=== PATIENT | female | born 2000 | race Caucasian/White ===

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

== ENCOUNTER 2024-02-14 07:44 | Emergency (ER) | payer BC ==
--- OUTSIDE RECORDS SUMMARY | 2024-02-14 07:46 | XMS REPORT | Continuity of Care Document ---
Author Name Unknown Address [address] [facility] [address] [place], [place] [id number] [place] [address] [employer] Address [address] 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 ON 9 [id number] 2022 00:00:00 Social History Social Habit Start Date Stop Date Quantity Comments Source Gender identity Kaylee Arora - External Sexual orientation Elijah Arora - External Alcohol intake 2023-06-11 00:00:00 2023-06-11 00:00:00 Current drinker of alcohol (finding) Kerry Arora - External History of Social function 2023-03-24 00:00:00 2023-03-24 00:00:00 Kerry Arora - External Tobacco use and exposure 2023-01-13 00:00:00 2023-01-13 00:00:00 Smokeless tobacco non-user Kerry Arora - External Alcohol Comment 2023-01-13 00:00:00 2023-01-13 00:00:00 socially Kerry Arora - External Sex Assigned At 2000 00:00:00 2000 00:00:00 F Kerry Hernandez Smoking Status Start Date Stop Date Source Never smoked tobacco Kerry Hernandez Medications Ordered Medication Name Filled Medication Name Start Date Stop Date Current Medication? Ordering Clinician Indication Dosage Frequency Signature (SIG) Comments Components Source TRIAMCINOLO NE ACETONIDE EX 08-01 08:25: 15 Yes Apply topically. Kerry orper Cetirizine HCl (ZYRTEC ALLERGY OR) 08-01 08:20: 34 Yes Take by mouth Kerry roper Clobetasol Propionate 0.05 % apply externally Ointment 08-01 00:00: 00 Yes [id number] Apply to affected areas twice daily for up to two weeks. Then use as needed to affected areas.. Kerry roper Cetirizine HCl (ZYRTEC ALLERGY OR) 2022-07 09:58: 49 Yes Take by mouth Kerry roper Triamcinolo ne Acetonide 0.1 % apply externally Cream 2022-07 00:00: 00 07-10 05:59 :00 No [id number] Use twice a day on affected areas. Kerry roper Albuterol HFA 108 (90 Base) MCG/ACT IN AERS 03-17 00:00: 00 06-11 00:00 :00 No INHALE TWO (2) PUFFS BY MOUTH EVERY 4-6 HOURS NEEDED FOR SHORTNESS OF BREATH, COUGH, OR WHEEZING. Kerry roper Ondansetron (ZOFRAN) 4 MG oral TABLET DISPERSIBLE 03-17 00:00: 00 06-11 00:00 :00 No TAKE ONE (1) TABLET(S) BY MOUTH EVERY FOUR HOURS NEEDED FOR NAUSEA AND VOMITING. Kerry roper Oseltamivir Phosphate 75 MG oral Capsule 03-17 00:00: 00 06-11 00:00 :00 No TAKE ONE (1) CAPSULE(S) BY MOUTH TWICE DAILY WITH MEALS. Kerry roper Cetirizine HCl (ZYRTEC ALLERGY OR) 01-14 09:17: 08 Yes Take by mouth Kerry roper Fluconazole 150 MG oral Tablet 01-14 00:00: 00 Yes [id number] 150mg Take 1 tablet (150 mg total) by mouth once a week Kerry roper Immunizations Ordered Immunization Name Filled Immunization Name Date Status Comments Source HPV 9 (Human Papillomavirus) 2023-01-14 00:00:00 Completed Kerry Arora - External Meningococcal Vaccine- Conjugate(Menactra) 2021-02-05 00:00:00 Completed Kerry Arora - External HPV 9 (Human Papillomavirus) Unknown Completed Kerry roque - External Meningococcal Vaccine- Conjugate(Menactra) Unknown Completed Kerry ortabojude - External HPV 9 (Human Papillomavirus) Unknown Completed Kerry Hi ld - External Meningococcal Vaccine- Conjugate(Menactra) Unknown Completed Kerry ortabold - External Vital Signs Vital Name Observation Time Observation Value Comments S ource Systolic blood pressure 2023-06-11 15:54:00 114 mm[Hg] Kerry chemao ld - External Diastolic blood pressure 2023-06-11 15:54:00 60 mm[Hg] Kerry Mancillao ld - External Heart rate 2023-06-11 15:54:00 80 /min Pamela vega eboni - External Body temperature 2023-06-11 15:54:00 36.44 Sujatha Kerry Ulysses - External Respiratory rate 2023-06-11 15:54:00 16 /min Kerry Arora - External Body height 2023-06-11 15:54:00 170.2 cm Kaylee orta ybold - External Body weight 2023-06-11 15:54:00 107.049 kg Kaylee orta Seybold - External BMI 2023-06-11 15:54:00 36.96 kg/m2 Kaylee orta Seybold - External Systolic blood pressure 2023-01-14 14:13:00 114 mm[Hg] Kerry chemao ld - External Diastolic blood pressure 2023-01-14 14:13:00 60 mm[Hg] Kerry ybo ld - External Heart rate 2023-01-14 14:13:00 69 /min Pamela y Charoold - External Body temperature 2023-01-14 14:13:00 36.22 Sujatha Kerry Arora - External Respiratory rate 2023-01-14 14:13:00 16 /min Kerry Arora - External Body height 2023-01-14 14:13:00 170.2 cm Kaylee ey Seybold - External Body weight 2023-01-14 14:13:00 107.684 kg Kaylee ey Seybold - External BMI 2023-01-14 14:13:00 37.18 kg/m2 Kaylee orta Seybold - External Oxygen saturation in Arterial blood by Pulse oximetry 2023-01-14 14:13:00 98 /min Kerry analilia ld - External Encounters Start Date/Time End Date/Time Encounter Type Admission Type Attending [facility] Care Department Encounter ID Source 2021-10-05 14:13:24 Outpatient [facility] [id number] - [id number] [facility] 2021-10-03 12:46:49 Outpatient [facility] [id number] - [id number] [facility] 2024-03-04 14:30:00 2024-03-04 14:30:00 Outpatient [facility] [id number] [facility]24-02-[facility] 08:00:00 2024-02-17 08:00:00 Outpatient [facility] [id number] [facility] 2023-08-01 08:15:00 2023-08-01 08:15:00 Outpatient PORTIA KHALIL [id number] Kerry [facility] 2023-06-11 10:00:00 2023-06-11 10:00:00 Outpatient HERB BARKER [id number] Kerry Arora 2023-03-12 09:00:00 2023-03-12 09:00:00 Outpatient HERB BARKER [id number] Kerry Arora 2023-01-14 10:45:00 2023-01-14 10:45:00 Outpatient LAB90 KERRY BARRETO [id number] Kerry Arora 2023-01-14 10:00:00 2023-01-14 10:00:00 ROSALIO Barnett [id number] Kerry Arora
[2024-02-14 08:35] LABS: Absolute Eosinophils 0.2 K/uL (0-0.5); Absolute Lymphocytes (CBC) 1.6 K/uL (0.7-4.9); Absolute Monocytes 0.5 K/uL (0.1-1.3); Absolute Neutrophil 5.4 K/uL (1.8-8.0); Basophils % 0.1 % (0-1.3); Eosinophils % 2.2 % (0-4.4); Hemoglobin 12.5 g/dL (12.0-15.0); Lymphocytes % 20.5 % (15.3-44.8); MCH 29.6 pg (27.0-35.0); MCV 89.6 fL (80-100); MPV 7.3 fL (7.6-11.3); Monocytes % 6.6 % (3.3-12.3); Neutrophils % 70.6 % (41.7-73.7); Platelets 262 thou/uL (152-406); RBC Red Blood Cell Count 4.24 M/uL (3.86-4.86); Red Cell Distribution Width 14.1 % (12.1-15.2)
[2024-02-14 08:54] LABS: Specific Gravity 1.017 (1.005-1.030); Sqamous Epithelial <5 /HPF (None Seen); Urine Bacteria None Seen /HPF (<20); Urine Bilirubin NEGATIVE (Negative); Urine Blood Negative (Negative); Urine Clarity Turbid (Clear); Urine Color Light-Yellow (Yellow); Urine Crystals Unidentified Few /HPF (None Seen); Urine Culture Reflex Order NOT NEEDED; Urine Glucose NEGATIVE (Negative); Urine Ketones NEGATIVE (Negative); Urine Microscopic Reflex YN ORDER UMIC; Urine Mucus Slight /HPF (None Seen); Urine Nitrite NEGATIVE (Negative); Urine Protein NEGATIVE (Negative); Urine RBC <5 /HPF (None Seen); Urine Urobilinogen Normal (Normal); Urine WBC <5 /HPF (<5)
[2024-02-14] MEDS ORDERED: NA CHLORIDE 0.9% 1,000 ML ONE (08:55)
[2024-02-14 09:07] LABS: Specific Gravity 1.017 (1.005-1.030)
[2024-02-14 09:16] LABS: Anion Gap 7.8 mEq/L (5.0-15.0); Potassium 3.8 mEq/L (3.5-5.1)
--- NOTE | 2024-02-14 09:46 | RAD REPORT ---
EXAM DESCRIPTION: US - Transvaginal OB - 02/14/2024 8:53 am CLINICAL HISTORY: with pelvic pain status post fall COMPARISON: None FINDINGS: The uterus measures 7 x 4 x 5 centimeters. A gestational sac is present within the endometrium measuring 7 millimeters Yolk sac not seen. No pole demonstrated Right and left ovary appear normal. The right and left adnexa are unremarkable No significant free fluid is seen. IMPRESSION: 7 millimeter gestational sac within the endometrium. This may represent a viable intraut erine in which the pole not seen secondary to the early gestation. Estimated gestatio nal age would be 5 weeks 3 days [place] 10/13/2024 Other considerations include an incomplete and pseudo gestational sac associated with an ect opic . This all should be correlated clinically and beta HCG levels. Follow-up ultrasound in 1 week would be helpful re-evaluation
--- NOTE | 2024-02-14 09:50 | EDPHYS ---
Physician Documentation [facility] Name: Elayne Ibarra Age: 23 yrs Sex: Female : 2000 Arrival Date: 02/14/2024 Time: 07:44 Bed 7 Private MD: ED Physician Dorian Hdez HPI: 02/13 08:37 This 23 yrs old Female presents to ER via Ambulatory with complaints of Fall reji Injury - psbl 6wks preg. 08:37 Details of fall: The patient fell from an upright position, while standing. Onset: The reji symptoms/episode began/occurred just prior to arrival. Associated injuries: The patient sustained injury to the abdomen. Severity of symptoms: At their worst the symptoms were mild, in the emergency department the symptoms are unchanged. The patient has not experienced similar symptoms in the past. 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 - Infectious Disease History:: Denies. - Social history:: Smoking status: Patient denies any tobacco usage or history of. ROS: 08:38 Constitutional: Negative for fever, chills, and weight loss, Eyes: Negative for injury, reji pain, redness, and discharge, ENT: Negative for injury, pain, and discharge, Neck: Negative for injury, pain, and swelling, Cardiovascular: Negative for chest pain, palpitations, and edema, Respiratory: Negative for shortness of breath, cough, wheezing, and pleuritic chest pain, Back: Negative for injury and pain, : Negative for injury, bleeding, discharge, and swelling, MS/Extremity: Negative for injury and deformity, Skin: Negative for injury, rash, and discoloration, Neuro: Negative for headache, weakness, numbness, tingling, and seizure, Psych: Negative for depression, anxiety, suicide ideation, homicidal ideation, and hallucinations, Allergy/Immunology: Negative for hives, rash, and allergies, Endocrine: Negative for neck swelling, polydipsia, polyuria, polyphagia, and marked weight changes, Hematologic/Lymphatic: Negative for swollen nodes, abnormal bleeding, and unusual bruising, 08:38 Abdomen/GI: Positive for abdominal pain, abdominal cramps, Exam: 08:38 Constitutional: This is a well developed, well nourished patient who is awake, alert, reji and in no acute distress. Head/Face: Normocephalic, atraumatic. Eyes: Pupils equal round and reactive to light, extra-ocular motions intact. Lids and lashes normal. Conjunctiva and sclera are non-icteric and not injected. Cornea within normal limits. Periorbital areas with no swelling, redness, or edema. ENT: Nares patent. No nasal discharge, no septal abnormalities noted. Tympanic membranes are normal and external auditory canals are clear. Oropharynx with no redness, swelling, or masses, exudates, or evidence of obstruction, uvula midline. Mucous membranes moist. Neck: Trachea midline, no thyromegaly or masses palpated, and no cervical lymphadenopathy. Supple, full range of motion without nuchal rigidity, or vertebral point tenderness. No Meningismus. Chest/axilla: Normal chest wall appearance and motion. Nontender with no deformity. No lesions are appreciated. Cardiovascular: Regular rate and rhythm with a normal S1 and S2. No gallops, murmurs, or rubs. Normal PMI, no JVD. No pulse deficits. Respiratory: Lungs have equal breath sounds bilaterally, clear to auscultation and percussion. No rales, rhonchi or wheezes noted. No increased work of breathing, no retractions or nasal flaring. Back: No spinal tenderness. No costovertebral tenderness. Full range of motion. Skin: Warm, dry with normal turgor. Normal color with no rashes, no lesions, and no evidence of cellulitis. MS/ Extremity: Pulses equal, no cyanosis. Neurovascular intact. Full, normal range of motion. Neuro: Awake and alert, GCS 15, oriented to person, place, time, and situation. Cranial nerves II-XII grossly intact. Motor strength 5/5 in all extremities. Sensory grossly intact. Cerebellar exam normal. Normal gait. Psych: Awake, alert, with orientation to person, place and time. Behavior, mood, and affect are within normal limits. 08:38 Abdomen/GI: Inspection: abdomen appears normal, Bowel sounds: normal, Palpation: abdomen is soft and non-tender, Liver: no appreciated palpable abnormalities, Hernia: not appreciated, Vital Signs: 08:11 BP 133 / 84; Pulse 68; Resp 16; Temp 97.3(TE); Pulse Ox 100% on R/A; Weight 108.86 kg; hb Height 5 ft. 8 in. ; Pain 2/10; 08:11 Body Mass Index 36.49 (108.86 kg, 172.72 cm) hb 08:11 Pain Scale: Adult hb MDM: 08:00 Patient medically screened. [facility] 08:38 Differential diagnosis: contusion, multiple trauma. Data reviewed: vital signs, nurses reji notes, lab test result(s), radiologic studies, ultrasound. Consideration of Admission/Observation Escalation of care including admission/observation considered. I considered the following discharge prescriptions or medication management in the emergency department Medications were administered in the Emergency Department. See MAR. Independent interpretation of the following test(s) in the Emergency Department Radiology Department Ultrasound: My interpretation is tv usg. Test considered but Not performed: X-ray: no x rays. Care significantly affected by the following chronic conditions: Obesity. 02/13 08:02 Order name: Abo/rh Typing; Complete Time: 09:36 [facility] 02/13 08:02 Order name: Basic Metabolic Panel; Complete Time: 09:36 [facility] 02/13 08:02 Order name: CBC with Diff; Complete Time: 09:36 [facility] 02/13 08:02 Order name: Test, Urine; Complete Time: 09:36 [facility] 02/13 08:02 Order name: Quantitative Hcg; Complete Time: 09:36 [facility] 02/13 08:02 Order name: Urinalysis w/ reflexes; Complete Time: 09:36 [facility] 02/13 08:02 Order name: US Transvaginal Ob; Complete Time: 09:50 [facility] 02/13 08:02 Order name: IV Saline Lock; Complete Time: :27 [facility] 02/13 08:02 Order name: Labs collected and sent; Complete Time: :27 [facility] 02/13 08:02 Order name: NPO; Complete Time: :27 [facility] Administered Medications: 09:17 Drug: NS 0.9% IV 1000 ml IV at 1 bolus Per protocol; 1000 mL bolus Route: IV; Rate: 1 dd2 bolus; Site: right upper arm; 10:05 Follow up: Response: No adverse reaction; IV Status: Order to discontinue infusion; IV dd2 Intake: 500ml Disposition Summary: 02/14/24 09:49 Discharge Ordered Notes: Location: Home reji Problem: new reji Symptoms: have improved reji Condition: Stable reji Diagnosis - Less than 8 weeks gestation of - sp fall, 5 weeks 3 days reji Followup: reji - With: Private Physician - When: 2 - 3 days - Reason: Recheck today's complaints, Continuance of care, Re-evaluation by your physician Discharge Instructions: - Discharge Summary Sheet reji - Abdominal Pain During reji - Fall Prevention in the Home, Adult reji - First Trimester of , Agdj-iz-Wfos reji - First Trimester of reji - Fall Prevention in the Home, Adult, Psgm-dj-Zbza reji - Abdominal Pain During , Fovt-rw-Bzzs reji Forms: - Medication Reconciliation Form reji - Antibiotic Education reji - Prescription Opioid Use reji - Patient Portal Instructions reji - Leadership Thank You Letter reji Signatures: Dispatcher [employer] Dorian Paez MD MD cha Baxter, Heather, RN RN hb DAVIS, DIANA, RN RN dd2 Corrections: (The following items were deleted from the chart) 08:02 08:02 ABO/RH TYPING+BB.LAB.BRZ ordered. EDMS EDMS 08:02 08:02 BASIC METABOLIC PANEL+C.LAB.BRZ ordered. EDMS EDMS 08:02 08:02 CBC+H.LAB.BRZ ordered. EDMS EDMS 08:02 08:02 Test, Urine+UC.LAB.BRZ ordered. EDMS EDMS 08:02 08:02 QUANTITATIVE HCG+C.LAB.BRZ ordered. EDMS EDMS 08:02 08:02 Urinalysis+U.LAB.BRZ ordered. EDMS EDMS 08:02 08:02 Transvaginal Ob+US.RAD.BRZ ordered. EDMS EDMS
--- NOTE | 2024-02-14 09:50 | ER ---
Nurse's Notes [facility] Name: Elayne Ibarra Age: 23 yrs Sex: Female : 2000 Arrival Date: 02/14/2024 Time: 07:44 Bed 7 Private MD: Diagnosis: Less than 8 weeks gestation of -sp fall, 5 weeks 3 days Presentation: 02/13 08:11 Chief complaint: Slipped in shower last night, c/o low back pain and abdominal hb cramping. Pt is approx 5 weeks , . Coronavirus screen: At this time, the client does not indicate any symptoms associated with coronavirus-19. Ebola Screen: No symptoms or risks identified at this time. Initial Sepsis Screen: Does the patient meet any 2 criteria? No. Patient's initial sepsis screen is negative. Does the patient have a suspected source of infection? No. Patient's initial sepsis screen is negative. Risk Assessment: Do you want to hurt yourself or someone else? Patient reports no desire to harm self or others. Onset of symptoms was February 14, 2024. 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 - Infectious Disease History:: Denies. - Social history:: Smoking status: Patient denies any tobacco usage or history of. Screenin:18 [facility] ED Fall Risk Assessment (Adult) History of falling in the last 3 months, dd2 including since admission Yes- single mechanical fall (1 pt) Confusion or Disorientation No (0 pts) Intoxicated or Sedated No (0 pts) Impaired Gait No (0 pts) Mobility Assist Device Used No (0 pt) Altered Elimination No (0 pt) Score/Fall Risk Level 0 - 2 = Low Risk Oriented to surroundings, Maintained a safe environment, Educated pt \T\ family on fall prevention, incl call for assistance when getting out of bed, Hourly rounding (assess needs \T\ fall precautionary measures) done. Abuse screen: Denies threats or abuse. Nutritional screening: No deficits noted. Tuberculosis screening: No symptoms or risk factors identified. Assessment: 09:18 General: Appears in no apparent distress. Behavior is calm, cooperative. Pain: dd2 Complains of pain in back and abdomen. Neuro: No deficits noted. Cardiovascular: No deficits noted. Respiratory: No deficits noted. GI: Abdomen is non-distended, Reports lower abdominal pain. : No deficits noted. EENT: No deficits noted. Derm: No deficits noted. Musculoskeletal: Reports pain in lumbar area, left mid back and right mid back. Vital Signs: 08:11 BP 133 / 84; Pulse 68; Resp 16; Temp 97.3(TE); Pulse Ox 100% on R/A; Weight 108.86 kg; hb Height 5 ft. 8 in. ; Pain 2/10; 08:11 Body Mass Index 36.49 (108.86 kg, 172.72 cm) hb 08:11 Pain Scale: Adult hb ED Course: 07:47 Patient arrived in ED. ra3 08:00 Dorian Hdez MD is Attending Physician. reji 08:12 Triage completed. hb 08:12 Arm band placed on. hb 08:27 Abo/rh Typing Sent. bc6 08:27 Basic Metabolic Panel Sent. bc6 08:27 CBC with Diff Sent. bc6 08:27 Quantitative Hcg Sent. bc6 08:28 Initial lab(s) drawn, by pa, sent to lab. Inserted saline lock: 24 gauge in right upper bc6 arm, using aseptic technique. Blood collected. Flushed with 10 mL NS. 08:55 Transvaginal Ob In Process Unspecified. EDMS 09:11 HAVEN OLSEN, RN is Primary Nurse. dd2 09:18 Patient has correct armband on for positive identification. Bed in low position. Call dd2 light in reach. Side rails up X 1. Provided Education on: CALL LIGHT, FALL RISK, LABS. 09:18 Door closed. Noise minimized. Warm blanket given. dd2 09:18 No provider procedures requiring assistance completed. dd2 10:10 IV discontinued, intact, bleeding controlled, No redness/swelling at site. Pressure dd2 dressing applied. Administered Medications: 09:17 Drug: NS 0.9% IV 1000 ml IV at 1 bolus Per protocol; 1000 mL bolus Route: IV; Rate: 1 dd2 bolus; Site: right upper arm; 10:05 Follow up: Response: No adverse reaction; IV Status: Order to discontinue infusion; IV dd2 Intake: 500ml Medication: 09:18 VIS not applicable for this client. dd2 Intake: 10:05 IV: 500ml; Total: 500ml. dd2 Outcome: 09:49 Discharge ordered by MD. mendoza 10:10 Discharged to home ambulatory, dd2 10:10 Condition: stable 10:10 Discharge instructions given to patient, Instructed on discharge instructions, follow up and referral plans. Demonstrated understanding of instructions, follow-up care, 10:35 Patient left the ED. dd2 Signatures: Dispatcher [employer] EDMS Dorian Hdez MD MD cha Baxter, Heather, RN RN Yesica Pimentel 6 Desire Carson 3 HAVEN OLSEN RN RN dd2
[2024-02-14 10:58] VITALS: BP 133/84; TEMP 97.3; O2SAT 100
== END 2024-02-14 10:35 | disposition home or self-care (01) ==
LOC: ER 07:44
DX: O26.891 Other specified pregnancy related conditions, first trimester (principal); W18.30XA Fall on same level, unspecified, initial encounter; Z3A.01 Less than 8 weeks gestation of pregnancy
CPT/HCPCS: 85025; 81001; 80048; 36415; 86900; 81025; 86901; 84702; 76817; 96360; 99284; J7030

== ENCOUNTER 2024-09-23 04:20 | Emergency (ER) | payer BC, OTHER ==
--- OUTSIDE RECORDS SUMMARY | 2024-09-23 04:25 | XMS REPORT | Continuity of Care Document ---
Author Name Unknown Address [address] [place] [address] Organization [facility] [place] Address [address] [place] [address] Care Team Providers Care Advance Scout Name Role Phone Jose Luis Barton Attending Clinician UnavailHERB Aguillon Attending Clinician Unavailab le LAB90 Attending Clinician Unavailable ROSALIO WINCHESTER Attending Clinician Unavailable PORTIA KHALIL Attending Clinician Unava ilable KNOW, DOES_NOT Admitting Clinician Unavailable Jose Luis Barton Admitting Clinician Unavailsamanta e Payers Payer Name Policy Type Policy Number Effective Date Expirati on Date Source OTHER CI [id number] OTHER CI [id number] BCBS 2 [id number] 2024 00:00:00 [employer] 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 ON 9 [id number] 2022 00:00:00 Problems Condition Name Condition Details Condition Category Status Onset Date Resolution Date Last Treatment Date Treating Clinician Comments Source Well adult exam Well adult exam Disease Active 8- 00:00: 00 Kerry roper Allergies, Adverse Reactions, Alerts Allergy Name Allergy Type Status Severity Reaction(s) Onset Date Inactive Date Treating Clinician Comments Source No Known Allergie s DA Active U 2-14 00:00: 00 [facility] Social History Social Habit Start Date Stop Date Quantity Comments Source Gender identity Kaylee Arora - External Sexual orientation Elijah Arora - External ASSERTION Kerry scott - External Alcoholic beverage intake 2024-03-04 00:00:00 2024-03-04 00:00:00 Current drinker of alcohol (finding) Kerry Arora - External Alcohol intake 2023-06-11 00:00:00 2023-06-11 00:00:00 Current drinker of alcohol (finding) Kerry Charoalexsander - External History of Social function 2023-03-24 00:00:00 2023-03-24 00:00:00 Kerrykeira Arora - External Tobacco use and exposure 2023-01-13 00:00:00 2023-01-13 00:00:00 Smokeless tobacco non-user Kerry Ulysses - External Alcohol Comment 2023-01-13 00:00:00 2023-01-13 00:00:00 socially Kerry Arora - External Sex assigned at 2000 00:00:00 2000 00:00:00 F Kerry Arora - External Smoking Status Start Date Stop Date Source Never smoked tobacco Kerry Charoalexsander - External Medications Ordered Medication Name Filled Medication Name Start Date Stop Date Current Medication? Ordering Clinician Indication Dosage Frequency Signature (SIG) Comments Components Source Fexofenadin e HCl (LEILANI ALLERGY OR) 03-04 14:44: 17 03-04 00:00 :00 No Take by mouth Kerry Arora - Billa l Cetirizine HCl (ZYRTEC ALLERGY OR) 03-04 14:44: 02 03-04 00:00 :00 No Take by mouth Kerry Arora - Billa l TRIAMCINOLO NE ACETONIDE EX 03-04 14:03: 02 03-04 00:00 :00 No Apply topically. Kerry Arora - Externa l TRIAMCINOLO NE ACETONIDE EX 08-01 08:25: 15 Yes Apply topically. Kerry Arora - Externa l Cetirizine HCl (ZYRTEC ALLERGY OR) 08-01 08:20: 34 Yes Take by mouth Kerry Seybold - Externa l Clobetasol Propionate 0.05 % apply externally Ointment 08-01 00:00: 00 03-04 00:00 :00 No [id number] Apply to affected areas twice daily for up to two weeks. Then use as needed to affected areas.. Kerry roper Cetirizine HCl (ZYRTEC ALLERGY OR) 2022-07 09:58: 49 Yes Take by mouth Kerry roper Triamcinolo ne Acetonide 0.1 % apply externally Cream 2022-07 00:00: 00 07-10 05:59 :00 No [id number] Use twice a day on affected areas. [...] MG oral Tablet 01-14 00:00: 00 Yes [id number] 150mg Take 1 tablet (150 mg total) by mouth once a week Kerry roper Immunizations Ordered Immunization Name Filled Immunization Name Date Status Comments Source HPV 9 (Human Papillomavirus) 2023-01-14 00:00:00 Completed Kerry Hernandez Meningococcal Vaccine- Conjugate(Menactra) 2021-02-05 00:00:00 Completed Kerry Brionesold - External Meningococcal Vaccine- Conjugate(Menactra) Unknown Completed Kerry Mile marivelbold - External HPV 9 (Human Papillomavirus) Unknown Completed Kerry Mancillaemy ld - External DTaP Unspecified Unknown Completed Floyd crockett Seold - External AFLURIA TRIVALENT PF(0.5mL) Unknown Completed Kerry Brionesold - External Influenza Virus Vaccine, Whole Virus Unknown [facility] HEPATITIS A- PEDI/ADOL Unknown Completed Kerry Mancillaold - External Hepatitis B, Unspecified Unknown Completed Kerry Mancillaold - External Hepatitis A Unknown Completed Kerry ortabold - External Hib, unspecified formulation Unknown Completed Kerry Arora External HPV 4 (Human Papillomavirus) Unknown Completed Kerry Mancillaemy - External MMR- Measles, Mumps, Rubella Unknown Completed Kerry Brionesold - External Pneumococcal Vaccine, Conjugate 7 Unknown [facility] IPV- Inactivated Polio Vaccine Unknown [facility] Tdap- (Boostrix, Adacel) Unknown Completed Kerry Brionesold - External Varicella Vaccine Unknown Completed Julio jacobmarivel Brionesybold - External HPV 9 (Human Papillomavirus) Unknown Completed Kerry Mancillaemy ld - External Meningococcal Vaccine- Conjugate(Menactra) Unknown Completed Kerry ortabold - External HPV 9 (Human Papillomavirus) Unknown Completed Kerry Hi ld - External Meningococcal Vaccine- Conjugate(Menactra) Unknown Completed Kerry ortabold - External HPV 9 (Human Papillomavirus) Unknown Completed Kerry Mancillaemy ld - External Vital Signs Vital Name Observation Time Observation Value Comments S ource Systolic blood pressure 2024-03-04 18:57:00 108 mm[Hg] Kerry Hi ld - External Diastolic blood pressure 2024-03-04 18:57:00 64 mm[Hg] Kerry Mancillaemy ld - External Heart rate 2024-03-04 18:57:00 80 /min Pamela vega Ulysses - External Body temperature 2024-03-04 18:57:00 36.78 Sujatha Kerry Mancillaold - External Respiratory rate 2024-03-04 18:57:00 18 /min Kerrykeira Mancillaold - External Body height 2024-03-04 18:57:00 170.2 cm Kaylee ey Seybold - External Body weight 2024-03-04 18:57:00 122.244 kg Kaylee ey Seybold - External BMI 2024-03-04 18:57:00 42.21 kg/m2 Kaylee ey Seybold - External Oxygen saturation in Arterial blood by Pulse oximetry 2024-03-04 18:57:00 98 /min Kerry Seybo ld - External Systolic blood pressure 2023-06-11 15:54:00 114 mm[Hg] Kerry Seybo ld - External Diastolic blood pressure 2023-06-11 15:54:00 60 mm[Hg] Kerry Seybo ld - External Heart rate 2023-06-11 15:54:00 80 /min Kelse y Seybold - External Body temperature 2023-06-11 15:54:00 36.44 Sujatha Kerry Seybold - External Respiratory rate 2023-06-11 15:54:00 16 /min Kerry Seybold - External Body height 2023-06-11 15:54:00 170.2 cm Kaylee ey Seybold - External Body weight 2023-06-11 15:54:00 107.049 kg Kaylee ey Seybold - External BMI 2023-06-11 15:54:00 36.96 kg/m2 Kaylee ey Seybold - External Systolic blood pressure 2023-01-14 14:13:00 114 mm[Hg] Kerry Seybo ld - External Diastolic blood pressure 2023-01-14 14:13:00 60 mm[Hg] Kerry Seybo ld - External Heart rate 2023-01-14 14:13:00 69 /min Kelse y Seybold - External Body temperature 2023-01-14 14:13:00 36.22 Sujatha Krery Seybold - External Respiratory rate 2023-01-14 14:13:00 16 /min Kerry Seybold - External Body height 2023-01-14 14:13:00 170.2 cm Kaylee ey Seybold - External Body weight 2023-01-14 14:13:00 107.684 kg Kaylee ey Seybold - External BMI 2023-01-14 14:13:00 37.18 kg/m2 Kaylee ey Seybold - External Oxygen saturation in Arterial blood by Pulse oximetry 2023-01-14 14:13:00 98 /min Kerry roque - External Encounters Start Date/Time End Date/Time Encounter Type Admission Type Attending [facility] Care Facility Care Department Encounter ID Source 2024-11-08 00:00:00 Inpatient IRENE HERNANDEZ LD [id number] [facility] 2024-08-05 15:00:00 Inpatient Jose Luis Pimentel [facility] [id number] [facility] 2021-10-05 14:13:24 Outpatient [facility] [id number] - [id number] [facility] 2021-10-03 12:46:49 Outpatient [facility] [id number] - [id number] [facility] 2024-08-20 07:04:00 2024-08-20 07:04:00 Outpatient Jose Luis Pimentel [facility] [id number] [facility] 2024-03-13 00:00:00 2024-03-13 00:00:00 Outpatient HERB BARKER [id number] [facility] 2024-03-11 11:25:00 2024-03-11 11:25:00 Outpatient SEDRICK KERRY BARRETO [id number] [facility] 2024-03-04 14:30:00 2024-03-04 14:30:00 Outpatient HERB BARKER [id number] Kerry [facility] 2024-02-17 08:00:00 2024-02-17 08:00:00 Outpatient ROSALIO WINCHESTER [id number] Kerry [facility] 2023-08-01 08:15:00 2023-08-01 08:15:00 Outpatient PORTIA KHALIL [id number] [facility] 2023-06-11 10:00:00 2023-06-11 10:00:00 Outpatient [facility]ARK[facility] [id number] [facility] 2023-03-12 09:00:00 2023-03-12 09:00:00 Outpatient HERB BARKER KERRY BARRETO [id number] Kerry Arora 2023-01-14 10:45:00 2023-01-14 10:45:00 Outpatient LAB90 KERRY BARRETO [id number] Kerry Arora 2023-01-14 10:00:00 2023-01-14 10:00:00 Outpatient POLAROSALIO Roper KERRY BARRETO [id number] Kerrykeira Arora Notes Date/Time Note Provider Source 2024-03-04 14:03:12 Chief Complaint Patient presents with Physical 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
[2024-09-23] MEDS ORDERED: ONDANSETRON 4 MG/2 ML VIAL ONE (05:01)
[2024-09-23] MEDS ORDERED: NA CHLORIDE 0.9% 1,000 ML ONE (05:01)
[2024-09-23] MEDS ORDERED: FAMOTIDINE 20 MG/2 ML VIAL IV ONE (05:01)
[2024-09-23 05:09] LABS: Absolute Eosinophils 0.2 K/uL (0-0.5); Absolute Lymphocytes (CBC) 0.7 K/uL (0.7-4.9); Absolute Monocytes 0.8 K/uL (0.1-1.3); Absolute Neutrophil 10.6 K/uL (1.8-8.0); Basophils % 0.2 % (0-1.3); Eosinophils % 1.3 % (0-4.4); Hematocrit 33.4 % (36.0-45.0); Hemoglobin 11.6 g/dL (12.0-15.0); Lymphocytes % 5.5 % (15.3-44.8); MCH 30.3 pg (27.0-35.0); MCHC 34.8 g/dL (32.0-36.0); MCV 87.2 fL (80-100); MPV 7.4 fL (7.6-11.3); Monocytes % 6.9 % (3.3-12.3); Neutrophils % 86.1 % (41.7-73.7); Platelets 278 thou/uL (152-406); RBC Red Blood Cell Count 3.83 M/uL (3.86-4.86); Red Cell Distribution Width 14.1 % (12.1-15.2)
[2024-09-23 05:38] LABS: Band Neutrophils 16 % (0-1); Blood Morphology Comment NOT SEEN (NOT SEEN); Differential Total Cells Count 100; Eosinophils 3 % (0-3); Lymphocytes 8 % (15-42); Monocytes 5 % (0-10); Platelet Estimate ADEQ; Segmented Neutrophils 68 % (40-80)
[2024-09-23 05:48] LABS: Albumin 2.6 g/dL (3.4-5.0); Albumin/Globulin Ratio 0.6 (1.1-1.8); Alkaline Phosphatase 131 U/L (45-117); Anion Gap 11.7 mEq/L (5.0-15.0); BUN Blood Urea Nitrogen 10 mg/dL (7-18); Bicarbonate 20 mEq/L (21-32); Bilirubin Total 0.5 mg/dL (0.2-1.0); Globulin 4.3 g/dL (2.3-3.5); Glomerular Filtration Rate 130 ml/min (=/>90); Glucose Level 91 mg/dL (74-106); Protein, Total 6.9 g/dL (6.4-8.2); Sodium Level 137 mEq/L (136-145)
[2024-09-23 05:58] LABS: ALT/SGPT < 14 U/L (13-56); AST/SGOT 24 U/L (15-37); Potassium 3.7 mEq/L (3.5-5.1)
[2024-09-23] MEDS ORDERED: DICYCLOMINE HCL 10 MG CAP ONE (06:07)
[2024-09-23] MEDS ORDERED: LOPERAMIDE HCL 2 MG CAPSULE ONE (06:07)
[2024-09-23] MEDS ORDERED: ACETAMINOPHEN 500 MG TAB ONE (06:08)
[2024-09-23] MEDS ORDERED: METOCLOPRAMIDE 5 MG TAB ONE (06:09)
[2024-09-23 06:31] LABS: Influenza A Ag Negative; Influenza B Ag Negative
[2024-09-23 06:32] LABS: SARS-CoV-2 Antigen Rapid Res Negative (Negative)
--- NOTE | 2024-09-23 06:56 | EDPHYS ---
Physician Documentation [facility] Name: Elayne Ibarra Age: 24 yrs Sex: Female : 2000 Arrival Date: 09/23/2024 Time: 04:20 Bed 14 Private MD: ED Physician Kristian Monge HPI: 09/23 06:00 This 24 yrs old Female presents to ER via Wheelchair with complaints of sp4 Nausea/Vomiting/Diarrhea. 09/24 02:27 24-year-old female with nausea vomiting diarrhea. sp4 02:27 Currently third trimester EGA 37 weeks.. 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 - Infectious Disease History:: Denies. - Social history:: Smoking status: Patient denies any tobacco usage or history of. - Family history:: not pertinent. ROS: 09/24 02:27 Constitutional: Negative for fever, chills, and weight loss, positive nausea vomiting sp4 and diarrhea. 02:29 All other systems are negative, sp4 Exam: 02:29 Constitutional: This is a well developed, well nourished patient who is awake, alert, sp4 and in no acute distress. Head/Face: Normocephalic, atraumatic. Eyes: Pupils equal round and reactive to light, extra-ocular motions intact. Lids and lashes normal. Conjunctiva and sclera are not injected. Cornea within normal limits. Periorbital areas with no swelling, redness, or edema. ENT: Nares patent. No nasal discharge, no septal abnormalities noted. Tympanic membranes are normal and external auditory canals are clear. Oropharynx with no redness, swelling, or masses, exudates, or evidence of obstruction, uvula midline. Mucous membranes moist. Neck: Trachea midline, no thyromegaly or masses palpated, and no cervical lymphadenopathy. Supple, full range of motion without nuchal rigidity, or vertebral point tenderness. Chest/axilla: Normal chest wall appearance and motion. Nontender with no deformity. No lesions are appreciated. Cardiovascular: Regular rate and rhythm with a normal S1 and S2. No gallops, murmurs, or rubs. Normal PMI, no JVD. No pulse deficits. Respiratory: Lungs have equal breath sounds bilaterally, clear to auscultation and percussion. No rales, rhonchi or wheezes noted. No increased work of breathing, no retractions or nasal flaring. Abdomen/GI: Soft, with normal bowel sounds. No distension or tympany. No guarding or rebound. No evidence of tenderness throughout. Back: No spinal tenderness. No costovertebral tenderness. Skin: Warm, dry with normal turgor. Normal color with no rashes, no lesions, and no evidence of cellulitis. MS/ Extremity: Pulses equal, no cyanosis. Neurovascular intact. Full, normal range of motion. Neuro: Awake and alert, GCS 15, oriented to person, place, time, and situation. Cranial nerves II-XII grossly intact. Motor strength 5/5 in all extremities. Sensory grossly intact. Psych: Awake, alert, with orientation to person, place and time. Behavior, mood, and affect are within normal limits Vital Signs: 09/23 04:43 BP 149 / 91; Pulse 108; Resp 18; Temp 97.6; Pulse Ox 100% ; Weight 117.03 kg; Height 5 al5 ft. 7 in. ; 05:00 BP 140 / 79; Pulse 80; Resp 18; Pulse Ox 100% ; al5 05:15 BP 134 / 74; Pulse 80; Resp 18; Pulse Ox 100% ; al5 05:30 BP 141 / 85; Pulse 75; Resp 18; Pulse Ox 100% ; al5 06:00 BP 147 / 74; Pulse 68; Resp 17; Pulse Ox 100% ; al5 06:30 BP 148 / 74; Pulse 69; Resp 18; Pulse Ox 100% ; al5 04:43 Body Mass Index 40.41 (117.03 kg, 170.18 cm) al5 Molly Coma Score: 09/24 02:29 Eye Response: spontaneous(4). Motor Response: obeys commands(6). Verbal Response: sp4 oriented(5). Total: 15. MDM: 09/23 05:07 Medical Screening Exam initiated sp4 09/24 02:29 Differential diagnosis: Nonspecific abd pain, gastritis, pancreatitis, viral sp4 gastroenteritis, gastroenteritis. Data reviewed: vital signs, nurses notes, lab test result(s), radiologic studies, ultrasound. Consideration of Admission/Observation Escalation of care including admission/observation considered. ED course: EXAMINATION: US OB Limited COMPARISON: 02/14/2024. HISTORY: [facility] MAIN 37 weeks Bed Name: 14 TECHNIQUE: Real-time ultrasound was performed through the pelvis via transabdominal approach, for a third trimester . FINDINGS: There is a single living intrauterine . Fetus in cephalic presentation. Cervical canal is closed measuring 3.2 cm. Placenta is forming anteriorly. Amniotic fluid index: 11.94 cm. Ovaries were not well visualized There is no free fluid in the cul-de-sac. Measurements and Calculations: Femur length: 7.08 cm, consistent with a sonographic age of 36 weeks, 2 days, compared to 35 weeks and 4 days by clinical dating. Due date: 10/19/2024. IMPRESSION: Single living intrauterine , with a composite sonographic age of 36 weeks, 2 days. No evident complications. . 09/23 04:38 Order name: Test, Urine; Complete Time: 02:28 sp4 09/23 04:38 Order name: Urinalysis W/Microscopic; Complete Time: 02:28 sp4 09/23 04:39 Order name: CBC with Diff; Complete Time: 05:53 sp4 09/23 04:39 Order name: CMP; Complete Time: 06:01 sp4 09/23 04:59 Order name: COVID-19 Ag + Flu A+B Ag; Complete Time: 06:47 sp4 09/23 05:12 Order name: Manual Differential; Complete Time: 05:53 EDMS 09/23 04:59 Order name: US OB Limited; Complete Time: 02:28 sp4 09/23 04:39 Order name: IV Saline Lock; Complete Time: 05:09 sp4 09/23 04:39 Order name: Labs collected and sent; Complete Time: 05:09 sp4 Administered Medications: 09/23 05:09 Drug: Famotidine IVP 20 mg IVP once; dilute with 10 mL 0.9% NaCl; give over 2 minutes al5 Route: IVP; Site: left antecubital; 06:03 Follow up: Response: No adverse reaction al5 05:09 Drug: Ondansetron IVP 8 mg IVP once; over 2 minutes Route: IVP; Site: left antecubital; al5 05:42 Follow up: Response: No adverse reaction; Nausea is decreased al5 05:09 Drug: NS 0.9% IV 1000 ml IV at 1 bolus Per protocol; to be given as a bolus over 60 al5 minutes Route: IV; Rate: 1 bolus; Site: left antecubital; 07:05 Follow up: Response: No adverse reaction; IV Status: Completed infusion; IV Intake: ph 1000ml 06:18 Drug: Acetaminophen PO 1000 mg PO once Route: PO; al5 06:53 Follow up: Response: No adverse reaction al5 06:18 Drug: MetoCLOPramide PO 10 mg PO once Route: PO; al5 06:53 Follow up: Response: No adverse reaction; Nausea is decreased al5 06:53 Follow up: Response: No adverse reaction al5 06:18 Drug: Dicyclomine PO 20 mg PO once Route: PO; al5 07:05 Follow up: Response: No adverse reaction ph 06:18 Drug: Loperamide PO 4 mg PO once Route: PO; al5 06:53 Follow up: Response: No adverse reaction al5 Disposition Summary: 09/23/24 06:56 Discharge Ordered Notes: Location: Home sp4 Problem: new sp4 Symptoms: have improved sp4 Condition: Stable sp4 Diagnosis - Acute viral gastroenteritis, third trimester sp4 Followup: sp4 - With: Private Physician - When: 7 - 10 days - Reason: Recheck today's complaints Discharge Instructions: - Discharge Summary Sheet sp4 - Viral Gastroenteritis, Adult, [id number] sp4 Forms: - Patient Portal Instructions sp4 Prescriptions: - promethazine 25 mg Oral tablet - take 1 tablet ORAL route every 8 hours As needed PRN nausea; 30 tablet; sp4 Refills: 0, Product Selection Permitted - ondansetron 8 mg Oral Tablet,disintegrating - take 1 tablet ORAL route every 8 hours PRN nausea; 30 tablet; Refills: 0, sp4 Product Selection Permitted Signatures: Dispatcher [employer] Kristian Merino MD MD sp4 Carole Duarte RN RN al5 Aurea Ivey RN ph Corrections: (The following items were deleted from the chart) 04:39 04:39 CBC+H.LAB.BRZ ordered. EDMS EDMS 04:39 04:39 COMPREHENSIVE METABOLIC PANEL+C.LAB.BRZ ordered. EDMS EDMS
--- NOTE | 2024-09-23 06:56 | ER ---
Nurse's Notes [facility] Name: Elayne Ibarra Age: 24 yrs Sex: Female : 2000 Arrival Date: 09/23/2024 Time: 04:20 Bed 14 Private MD: Diagnosis: Acute viral gastroenteritis, third trimester Presentation: 09/23 04:35 Chief complaint: Patient states: c/o N/V/D nonstop since 0000 today. Coronavirus al5 screen: At this time, the client does not indicate any symptoms associated with coronavirus-19. Ebola Screen: No symptoms or risks identified at this time. Risk Assessment: Do you want to hurt yourself or someone else? Patient reports no desire to harm self or others. Onset of symptoms was September 23, 2024. 04:35 Method Of Arrival: Wheelchair al5 04:35 Acuity: VIELKA 3 al5 04:35 Initial Sepsis Screen: Does the patient meet any 2 criteria? No. Patient's initial al5 sepsis screen is negative. Does the patient have a suspected source of infection? No. Patient's initial sepsis screen is negative. Triage Assessment: 04:36 General: Appears in no apparent distress. uncomfortable, Behavior is cooperative. Pain: al5 Complains of pain in abdomen. EENT: No signs and/or symptoms were reported regarding the EENT system. Neuro: Level of Consciousness is awake, alert, obeys commands, Oriented to person, place, time, situation. Cardiovascular: Capillary refill < 3 seconds Patient's skin is warm and dry. Respiratory: Airway is patent Respiratory effort is even, unlabored, Respiratory pattern is regular, symmetrical. GI: Abdomen is round non-distended, patient 37 weeks Reports lower abdominal pain, upper abdominal pain, diarrhea, nausea, vomiting. : No signs and/or symptoms were reported regarding the genitourinary system. Derm: Skin is intact, is healthy with good turgor, Skin is pink, warm \T\ dry. normal. Musculoskeletal: No signs and/or symptoms reported regarding the musculoskeletal system. ORDER BOOKER: 04:43 Verified al5 Historical: - Allergies: 04:42 No Known Allergies; al5 - PMHx: 04:42 None; al5 - PSHx: 04:42 None; al5 - Immunization history:: Adult Immunizations not up to date. - Infectious Disease History:: Denies. - Social history:: Smoking status: Patient denies any tobacco usage or history of. - Family history:: not pertinent. Screenin:38 [facility] ED Fall Risk Assessment (Adult) History of falling in the last 3 months, al5 including since admission No falls in past 3 months (0 pts) Confusion or Disorientation No (0 pts) Intoxicated or Sedated No (0 pts) Impaired Gait No (0 pts) Mobility Assist Device Used No (0 pt) Altered Elimination No (0 pt) Score/Fall Risk Level 0 - 2 = Low Risk Oriented to surroundings, Maintained a safe environment, Hourly rounding (assess needs \T\ fall precautionary measures) done. Abuse screen: Denies threats or abuse. Denies injuries from another. Nutritional screening: No deficits noted. Tuberculosis screening: No symptoms or risk factors identified. Assessment: 04:38 Reassessment: see triage assessment. al5 05:38 Reassessment: Patient appears in no apparent distress at this time. No changes from al5 previously documented assessment. Patient and/or family updated on plan of care and expected duration. Pain level reassessed. Patient is alert, oriented x 3, equal unlabored respirations, skin warm/dry/pink. 06:53 Reassessment: Patient appears in no apparent distress at this time. Patient and/or al5 family updated on plan of care and expected duration. Pain level reassessed. Patient is alert, oriented x 3, equal unlabored respirations, skin warm/dry/pink. Patient states feeling better. Vital Signs: 04:43 BP 149 / 91; Pulse 108; Resp 18; Temp 97.6; Pulse Ox 100% ; Weight 117.03 kg; Height 5 al5 ft. 7 in. ; 05:00 BP 140 / 79; Pulse 80; Resp 18; Pulse Ox 100% ; al5 05:15 BP 134 / 74; Pulse 80; Resp 18; Pulse Ox 100% ; al5 05:30 BP 141 / 85; Pulse 75; Resp 18; Pulse Ox 100% ; al5 06:00 BP 147 / 74; Pulse 68; Resp 17; Pulse Ox 100% ; al5 06:30 BP 148 / 74; Pulse 69; Resp 18; Pulse Ox 100% ; al5 04:43 Body Mass Index 40.41 (117.03 kg, 170.18 cm) al5 [place] Coma Score: 09/24 02:29 Eye Response: spontaneous(4). Motor Response: obeys commands(6). Verbal Response: sp4 oriented(5). Total: 15. ED Course: 09/23 04:34 Patient arrived in ED. rv1 04:35 Carole Duarte, CHUCK is Primary Nurse. al5 04:35 Kristian Monge MD is Attending Physician. al5 04:36 Triage completed. al5 04:37 Arm band placed on right wrist. Patient placed in the treatment room, in view of staff al5 members, on pulse oximetry. 04:38 Patient has correct armband on for positive identification. Placed in gown. Bed in low al5 position. Call light in reach. Side rails up X 1. Provided Education on: plan of care. 04:38 No provider procedures requiring assistance completed. al5 05:09 Inserted saline lock: 20 gauge in left antecubital area, using aseptic technique. Blood al5 collected. Flushed with 10 mL NS. 05:38 US OB Limited In Process Unspecified. EDMS 07:04 IV discontinued, intact, bleeding controlled, No redness/swelling at site. Pressure ph dressing applied. Administered Medications: 05:09 Drug: Famotidine IVP 20 mg IVP once; dilute with 10 mL 0.9% NaCl; give over 2 minutes al5 Route: IVP; Site: left antecubital; 06:03 Follow up: Response: No adverse reaction al5 05:09 Drug: Ondansetron IVP 8 mg IVP once; over 2 minutes Route: IVP; Site: left antecubital; al5 05:42 Follow up: Response: No adverse reaction; Nausea is decreased al5 05:09 Drug: NS 0.9% IV 1000 ml IV at 1 bolus Per protocol; to be given as a bolus over 60 al5 minutes Route: IV; Rate: 1 bolus; Site: left antecubital; 07:05 Follow up: Response: No adverse reaction; IV Status: Completed infusion; IV Intake: ph 1000ml 06:18 Drug: Acetaminophen PO 1000 mg PO once Route: PO; al5 06:53 Follow up: Response: No adverse reaction al5 06:18 Drug: MetoCLOPramide PO 10 mg PO once Route: PO; al5 06:53 Follow up: Response: No adverse reaction; Nausea is decreased al5 06:53 Follow up: Response: No adverse reaction al5 06:18 Drug: Dicyclomine PO 20 mg PO once Route: PO; al5 07:05 Follow up: Response: No adverse reaction ph 06:18 Drug: Loperamide PO 4 mg PO once Route: PO; al5 06:53 Follow up: Response: No adverse reaction al5 Medication: 04:38 VIS not applicable for this client. al5 Intake: 07:05 IV: 1000ml; Total: 1000ml. ph Outcome: 06:56 Discharge ordered by . junaid 07:04 Discharged to home ambulatory, ph 07:04 Condition: good 07:04 Discharge instructions given to patient, Instructed on discharge instructions, follow up and referral plans. medication usage, Demonstrated understanding of instructions, follow-up care, medications, Prescriptions given X 2, 07:04 Patient left the ED. ph Signatures: Dispatcher [employer] EDAurea Bhatia RN RN Viktoriya Hartman rv1 Kristian Monge MD MD sp4 Carole Duarte RN RN al5
[2024-09-23 07:01] LABS: Sqamous Epithelial <5 /HPF (None Seen); Urine Bacteria <20 /HPF (<20); Urine Bilirubin NEGATIVE (Negative); Urine Blood Negative (Negative); Urine Clarity Turbid (Clear); Urine Color Yellow (Yellow); Urine Culture Reflex Order NOT NEEDED; Urine Glucose NEGATIVE (Negative); Urine Ketones 2+ (Negative); Urine Micro Reflex YN NO BILL MICROSCOPIC; Urine Mucus 1+ /HPF (None Seen); Urine Nitrite NEGATIVE (Negative); Urine Protein TRACE (Negative); Urine RBC <5 /HPF (None Seen); Urine Urobilinogen Normal (Normal); Urine WBC <5 /HPF (<5)
[2024-09-23 07:09] VITALS: TEMP 97.6; O2SAT 100
[2024-09-23 07:14] VITALS: BP 148/74
--- NOTE | 2024-09-23 08:20 | RAD REPORT ---
EXAMINATION: US OB Limited COMPARISON: 02/14/2024. HISTORY: [facility] MAIN 37 weeks Bed Name: 14 TECHNIQUE: Real-time ultrasound was performed through the pelvis via transabdominal approach, for a t hird trimester . FINDINGS: There is a single living intrauterine . Fetus in cephalic presentation. Cervical canal is closed measuring 3.2 cm. Placenta is forming anteriorly. Amniotic fluid index: 11.94 cm. Ovaries were not well visualized There is no free fluid in the cul-de-sac. Measurements and Calculations: Femur length: 7.08 cm, consistent with a sonographic age of 36 weeks, 2 days, compared to 35 weeks an d 4 days by clinical dating. Due date: 10/19/2024. IMPRESSION: Single living intrauterine , with a composite sonographic age of 36 weeks, 2 days. No evident complications.
== END 2024-09-23 07:04 | disposition home or self-care (01) ==
LOC: ER 04:20
DX: O99.613 Diseases of the digestive system complicating pregnancy, third trimester (principal); A08.4 Viral intestinal infection, unspecified; Z3A.36 36 weeks gestation of pregnancy; Z11.52 Encounter for screening for COVID-19
CPT/HCPCS: 96361; 85025; 81001; 36415; 81025; 80053; 76815; 96375; 96374; 99284; 87428; J2405; J7030

== ENCOUNTER 2024-10-13 11:16 | Emergency (ER) | payer BC, OTHER ==
--- OUTSIDE RECORDS SUMMARY | 2024-10-13 11:19 | XMS REPORT | Continuity of Care Document ---
Author Name Unknown Address [address] [facility] [address] [facility] [address] [place] [address] [facility] Address [address] [place] [address] Care Team Providers Care Law Enforcement Instructor Name Role Phone Jose Luis Barton Attending Clinician UnavailHERB Aguillon Attending Clinician Unavailab le LAB90 Attending Clinician Unavailable ROSALIO WINCHESTER Attending Clinician Unavailable PORTIA KHALIL Attending Clinician Unamarli ilable KNOW, DOES_NOT Admitting Clinician Unavailable Jose Luis Barton Admitting Clinician Unavailsamanta e Payers Payer Name Policy Type Policy Number Effective Date Expirati on Date Source OTHER CI [id number] OTHER CI [id number] BCBS 2 [id number] 2024 00:00:00 [employer] 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 ON 9 [id number] 2022 00:00:00 Problems Condition Name Condition Details Condition Category Status Onset Date Resolution Date Last Treatment Date Treating Clinician Comments Source Well adult exam Well adult exam Disease Active 8- 00:00: 00 Kerry roper Allergies, Adverse Reactions, Alerts Allergy Name Allergy Type Status Severity Reaction(s) Onset Date Inactive Date Treating Clinician Comments Source No Known Allergie s DA Active U 2-14 00:00: 00 [facility] Social History Social Habit Start Date Stop [...] Stop Date Source Never smoked tobacco Kerry Cahroalexsander - External Medications Ordered Medication Name Filled [...] 08-01 00:00: 00 03-04 00:00 :00 No [id number] Apply to affected areas twice daily for up to two weeks. Then use as needed to affected areas.. Kerry roper Cetirizine HCl (ZYRTEC ALLERGY OR) 2022-07 09:58: 49 Yes Take by mouth Kerry roper Triamcinolo ne Acetonide 0.1 % apply externally Cream 2022-07 00:00: 00 07-10 05:59 :00 No [id number] Use twice a day on affected areas. [...] MG oral Tablet 01-14 00:00: 00 Yes [id number] 150mg Take 1 tablet (150 mg total) by mouth once a week Kerry roper Immunizations Ordered Immunization Name Filled Immunization Name Date Status Comments Source HPV 9 (Human Papillomavirus) 2023-01-14 00:00:00 Completed Kerry Hernandez Meningococcal Vaccine- Conjugate(Menactra) 2021-02-05 00:00:00 Completed Kerry Arora - External Hepatitis B, Unspecified Unknown Completed Kerry Arora - External Hepatitis A Unknown Completed Kerry ortabold - External Hib, unspecified formulation Unknown Completed Kerry Arora - External HPV 4 (Human Papillomavirus) Unknown Completed Kerry Hi ld - External MMR- Measles, Mumps, Rubella Unknown Com[facility] Pneumococcal Vaccine, Conjugate 7 Unknown Com[facility] IPV- Inactivated Polio Vaccine Unknown Completed [facility] External Tdap- (Boostrix, Adacel) Unknown Completed [facility] External Varicella Vaccine Unknown Completed Julio jacobmarivel Brionesold - External HPV 9 (Human Papillomavirus) Unknown Completed Kerry Hi ld - External Meningococcal Vaccine- Conjugate(Menactra) Unknown Completed Kerry ortabold External HPV 9 (Human Papillomavirus) Unknown Completed Kerry Hi ld - External Meningococcal Vaccine- Conjugate(Menactra) Unknown [facility] HPV 9 (Human Papillomavirus) Unknown Completed Kerry Hi ld - External Meningococcal Vaccine- Conjugate(Menactra) Unknown Completed Kerry Treadwell bold - External HPV 9 (Human Papillomavirus) Unknown Completed Kerry iH - External DTaP Unspecified Unknown Completed Floyd Arora External AFLURIA TRIVALENT PF(0.5mL) Unknown Completed [facility] External Influenza Virus Vaccine, Whole Virus Unknown Completed [facility] External HEPATITIS A- PEDI/ADOL Unknown Completed [facility] - External Vital Signs Vital Name Observation Time Observation Value Comments S ource Systolic blood pressure 2024-03-04 18:57:00 108 mm[Hg] Kerry Hi ld - External Diastolic blood pressure 2024-03-04 18:57:00 64 mm[Hg] Kerry Hi ld - External Heart rate 2024-03-04 18:57:00 80 /min Floydse gary Arora - External Body temperature 2024-03-04 18:57:00 36.78 Sujatha Kerry Arora - External Respiratory rate 2024-03-04 18:57:00 18 /min Kerry Arora - External Body height 2024-03-04 18:57:00 170.2 [...] Body temperature 2023-01-14 14:13:00 36.22 Sujatha Kerry Seybold - External Respiratory rate 2023-01-14 14:13:00 [...] End Date/Time Encounter Type Admission Type Attending [facility] Care Facility Care Department Encounter ID Source 2024-11-08 00:00:00 Inpatient IRENE HERNANDEZ LD [id number] 20 [facility] 2024-08-05 15:00:00 Inpatient Jose Luis Pimentel [facility] [id number] 40 [facility] 2021-10-05 14:13:24 Outpatient [facility] [id number] - [id number] [facility] 2021-10-03 12:46:49 Outpatient [facility] [id number] - [id number] [facility] 2024-08-20 07:04:00 2024-08-20 07:04:00 Outpatient Jose Luis Pimentel [facility] [id number] 36 [facility] 2024-03-13 00:00:00 2024-03-13 00:00:00 Outpatient HERB BARKER [id number] [facility] 2024-03-11 11:25:00 2024-03-11 11:25:00 Outpatient SEDRICK KERRY BARRETO [id number] [facility] 2024-03-04 14:30:00 2024-03-04 14:30:00 Outpatient HERB BARKER [id number] Kerry [facility] 2024-02-17 08:00:00 2024-02-17 08:00:00 Outpatient ROSALIO WINCHESTER [id number] Kerry [facility] 2023-08-01 08:15:00 2023-08-01 08:15:00 Outpatient PORTIA KHALIL [id number] Kerry [facility] 2023-06-11 10:00:00 2023-06-11 10:00:00 [facility]ARK[facility] [id number] [facility]-12 09:00:00 2023-03-12 09:00:00 Outpatient HERB BARKER KERRY BARRETO [id number] Kerry Arora 2023-01-14 10:45:00 2023-01-14 10:45:00 Outpatient LAB90 KERRY BARRETO [id number] Kerry Arora 2023-01-14 10:00:00 2023-01-14 10:00:00 Outpatient POLAROSALIO Roper KERRY BARRETO [id number] Kerrykeira Arora Notes Date/Time Note Provider Source 2024-03-04 14:03:12 Chief Complaint Patient presents with Physical Needs referral for SUPPORT DBA [facility]
--- NOTE | 2024-10-13 12:04 | ER ---
Nurse's Notes [facility] Name: Elayne Ibarra Age: 24 yrs Sex: Female : 2000 Arrival Date: 10/13/2024 Time: 11:16 Bed 1 Private MD: Diagnosis: Encounter for supervision of normal , unspecified, third trimester Presentation: 10/13 11:34 Chief complaint: Patient states: Woke this morning with bloody discharge, reports lower jl7 abdominal mild cramping radiates to low back. Coronavirus screen: At this time, the client does not indicate any symptoms associated with coronavirus-19. Ebola Screen: No symptoms or risks identified at this time. Initial Sepsis Screen: Does the patient meet any 2 criteria? No. Patient's initial sepsis screen is negative. Does the patient have a suspected source of infection? No. Patient's initial sepsis screen is negative. Risk Assessment: Do you want to hurt yourself or someone else? Patient reports no desire to harm self or others. Onset of symptoms was October 13, 2024. 11:34 Method Of Arrival: Ambulatory 7 11:34 Acuity: VIELKA 2 jl7 Triage Assessment: 11:37 General: Appears in no apparent distress. uncomfortable, Behavior is calm, cooperative, jl7 appropriate for age. Pain: Complains of pain in right lower quadrant and left lower quadrant Pain currently is 4 out of 10 on a pain scale. Quality of pain is described as crampy. 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 - Infectious Disease History:: Denies. - Social history:: Smoking status: Patient denies any tobacco usage or history of. Screenin:41 [facility] ED Fall Risk Assessment (Adult) History of falling in the last 3 months, db including since admission No falls in past 3 months (0 pts) Confusion or Disorientation No (0 pts) Intoxicated or Sedated No (0 pts) Impaired Gait No (0 pts) Mobility Assist Device Used No (0 pt) Altered Elimination No (0 pt) Score/Fall Risk Level 0 - 2 = Low Risk Oriented to surroundings, Maintained a safe environment. Abuse screen: Denies threats or abuse. Denies injuries from another. Nutritional screening: No deficits noted. Tuberculosis screening: No symptoms or risk factors identified. Assessment: 11:41 Reassessment: Patient appears in no apparent distress at this time. Patient and/or db family updated on plan of care and expected duration. Pain level reassessed. Patient is alert, oriented x 3, equal unlabored respirations, skin warm/dry/pink. BLOODY MUCOUS. General: Appears in no apparent distress. comfortable, Behavior is calm, cooperative. Neuro: Level of Consciousness is awake, alert, obeys commands, Oriented to person, place, time, situation. Respiratory: Airway is patent Respiratory effort is even, unlabored, Respiratory pattern is regular, symmetrical. 12:15 Reassessment: Patient appears in no apparent distress at this time. Patient and/or db family updated on plan of care and expected duration. Pain level reassessed. Patient is alert, oriented x 3, equal unlabored respirations, skin warm/dry/pink. 12:16 Pain: Denies pain. db 12:31 Reassessment: REPORT GIVEN TO CHUCK FERREIRA AT [facility]. db 12:55 Reassessment: Patient appears in no apparent distress at this time. Patient and/or db family updated on plan of care and expected duration. Pain level reassessed. Patient is alert, oriented x 3, equal unlabored respirations, skin warm/dry/pink. 13:23 Reassessment: Patient appears in no apparent distress at this time. Patient and/or db family updated on plan of care and expected duration. Pain level reassessed. Patient is alert, oriented x 3, equal unlabored respirations, skin warm/dry/pink. EMS ARRIVAL FOR PATIENT TRANSPORT TO [facility]. General: Appears in no apparent distress. comfortable, Behavior is calm, cooperative. Pain: Denies pain. Neuro: Level of Consciousness is awake, alert, obeys commands, Oriented to person, place, time, situation. Vital Signs: 11:34 BP 151 / 95; Pulse 60; Resp 15; Temp 97.9; Pulse Ox 100% ; Weight 117.48 kg; Height 5 jl7 ft. 7 in. ; Pain 4/10; 12:04 BP 141 / 97; Pulse 65; Resp 15; Pulse Ox 100% ; jl7 13:23 BP 155 / 94; Pulse 66; Resp 16; Pulse Ox 100% on R/A; db 11:34 Body Mass Index 40.56 (117.48 kg, 170.18 cm) jl7 11:34 Pain Scale: Adult jl7 Vitals: 11:40 Heart Tones 126 WITH MOVEMENT AND KICKING. db ED Course: 11:17 Patient arrived in ED. mr 11:26 Roselia Moffett MD is Attending Physician. gb1 11:34 Myra Santos, RN is Primary Nurse. db 11:37 Triage completed. jl7 11:37 Arm band placed on right wrist. jl7 11:40 Patient has correct armband on for positive identification. Placed in gown. Bed in low db position. Call light in reach. Side rails up X 1. Pulse ox on. NIBP on. Warm blanket given. Pillow given. 11:53 No provider procedures requiring assistance completed. db 12:56 initiated transfer to [facility] ,pt accepted in transfer to the [facility] by dr green, admin approval given by Rhiannon Heredia,pt going to ob er. 13:23 Provided Education on: TRANSFER. db 13:23 Patient transferred, IV remains in place. db Administered Medications: No medications were administered Medication: 11:42 VIS not applicable for this client. db Outcome: 12:03 ER care complete, transfer ordered by . gb1 13:23 Transferred by ground EMS Transfer form completed. X-rays sent w/ patient. Note: [facility] 13:23 Condition: stable 13:23 Instructed on the need for transfer, 13:24 Patient left the ED. db Signatures: Lesvia Clancya, Daisy, Reg Reg PerdomoLiya, RN RN jl7 Myra Santos, RN RN db Roselia Moffett MD MD gb1 Corrections: (The following items were deleted from the chart) 11:37 11:37 Home Meds: Unable to obtain; jl7 jl7
--- NOTE | 2024-10-13 12:04 | EDPHYS ---
Physician Documentation [facility] Name: Elayne Ibarra Age: 24 yrs Sex: Female : 2000 Arrival Date: 10/13/2024 Time: 11:16 Bed 1 Private MD: ED Physician Roselia Moffett HPI: 10/13 13:16 This 24 yrs old Female presents to ER via Ambulatory with complaints of 40 gb1 wks , vaginal bleeding. 13:16 Pt with passage of bloody mucous just prior to arrival. No leakage of fluid. This is gb1 her first baby, she is . She does feel baby move around, she denies any trauma.. [employer]: 11:37 LMP 01/2024, unknown jl7 Historical: - Allergies: 11:37 No Known Allergies; jl7 - Home Meds: 11:37 None [Active]; jl7 - PMHx: 11:37 None; jl7 - PSHx: 11:37 None; jl7 - Immunization history:: Adult Immunizations up to date. - Infectious Disease History:: Denies. - Social history:: Smoking status: Patient denies any tobacco usage or history of. Exam: 13:16 Constitutional: This is a well developed, well nourished patient who is awake, alert, gb1 and in no acute distress. Head/Face: Normocephalic, atraumatic. Eyes: Pupils equal round and reactive to light, extra-ocular motions intact. Lids and lashes normal. Conjunctiva and sclera are non-icteric and not injected. Cornea within normal limits. Periorbital areas with no swelling, redness, or edema. ENT: Nares patent. No nasal discharge, no septal abnormalities noted. Tympanic membranes are normal and external auditory canals are clear. Oropharynx with no redness, swelling, or masses, exudates, or evidence of obstruction, uvula midline. Mucous membranes moist. Neck: Trachea midline, no thyromegaly or masses palpated, and no cervical lymphadenopathy. Supple, full range of motion without nuchal rigidity, or vertebral point tenderness. No Meningismus. Chest/axilla: Normal chest wall appearance and motion. Nontender with no deformity. No lesions are appreciated. Cardiovascular: Regular rate and rhythm with a normal S1 and S2. No gallops, murmurs, or rubs. Normal PMI, no JVD. No pulse deficits. Respiratory: Lungs have equal breath sounds bilaterally, clear to auscultation and percussion. No rales, rhonchi or wheezes noted. No increased work of breathing, no retractions or nasal flaring. Abdomen/GI: Soft, non-tender, with normal bowel sounds. No distension or tympany. No guarding or rebound. No evidence of tenderness throughout. Back: No spinal tenderness. No costovertebral tenderness. Full range of motion. Skin: Warm, dry with normal turgor. Normal color with no rashes, no lesions, and no evidence of cellulitis. MS/ Extremity: Pulses equal, no cyanosis. Neurovascular intact. Full, normal range of motion. Neuro: Awake and alert, GCS 15, oriented to person, place, time, and situation. Cranial nerves II-XII grossly intact. Motor strength 5/5 in all extremities. Sensory grossly intact. Cerebellar exam normal. Normal gait. Vital Signs: 11:34 BP 151 / 95; Pulse 60; Resp 15; Temp 97.9; Pulse Ox 100% ; Weight 117.48 kg; Height 5 jl7 ft. 7 in. ; Pain 4/10; 12:04 BP 141 / 97; Pulse 65; Resp 15; Pulse Ox 100% ; jl7 13:23 BP 155 / 94; Pulse 66; Resp 16; Pulse Ox 100% on R/A; db 11:34 Body Mass Index 40.56 (117.48 kg, 170.18 cm) jl7 11:34 Pain Scale: Adult jl7 MDM: 11:29 Medical Screening Exam initiated gb1 13:16 Data reviewed: vital signs, nurses notes. ED course: 24-year-old female 40 weeks and 1 gb1 day by gestation G1, P0. Patient had a healthy and is managed at [facility] she had a bloody mucous plug just prior to arrival. She has had no medications that she is taking on a regular basis. Her blood pressure was initially elevated in the 150s but then did come back down to the 120s to 140s systolic. She was accepted by Dr. Magallanes at [facility] to the OB ED. There is a concern for preeclampsia. She will be transported by ambulance to the OB ED at [facility]. heart tones were 126.. 10/13 11:36 Order name: FHT's; Complete Time: 11:53 gb1 10/13 11:36 Order name: IV; Complete Time: 11:53 gb1 Administered Medications: No medications were administered Disposition Summary: 10/13/24 12:03 Transfer Ordered Notes: Transfer Location: [facility] gb1 Reason: Higher level of care gb1 Condition: Stable gb1 Problem: new gb1 Symptoms: have worsened gb1 Accepting Physician: Dr. Magallanes(10/13/24 13:24) tahir Diagnosis - Encounter for supervision of normal , unspecified, third trimester gb1 Forms: - Medication Reconciliation Form gb1 - SBAR form gb1 Critical care time excluding procedures: 13:21 Critical care time: Bedside Care: 20 minutes, Consultation: 45 minutes, Family gb1 Intervention: 50 minutes. Total time: 115 minutes Signatures: Liya Perdomo RN Myra Chandra RN RN Roselia Goodman MD MD gb1 Corrections: (The following items were deleted from the chart) 11:37 11:37 Home Meds: Unable to obtain; josh jl7 13:20 13:16 ED course: 24-year-old female 40 weeks and 1 day by gestation G1, P0. Patient had gb1 a healthy and is managed at [facility] she had a bloody mucous plug just prior to arrival. No sexual activity no abdominal pain or cramping. Patient does feel some pain in her back otherwise she is feeling well this . She takes no medications other than vitamins and is having a boy.. gb1 13:24 12:03 Dr. Magallanes gb1 db
[2024-10-13 13:41] VITALS: TEMP 97.9; O2SAT 100
[2024-10-13 13:50] VITALS: BP 155/94
== END 2024-10-13 13:24 | disposition short-term general hospital (02) ==
LOC: ER 11:16
DX: O26.893 Other specified pregnancy related conditions, third trimester (principal); Z3A.40 40 weeks gestation of pregnancy